=== PATIENT | female | born 1980 | race Hispanic/Latino ===

== ENCOUNTER 2016-10-26 09:09 | Inpatient (IN) | payer OTHER ==
[2016-10-26 09:30] VITALS: BMI 30.5
[2016-10-26] MEDS: Lactated Ringer's 1,000 ML IV SCH ×2 (10:30→11:31)
[2016-10-26] MEDS ORDERED: Oxytocin 30 units/LR 500ML 30 U/500 ML BAG IV SCH ×2 (10:30→10:32)
[2016-10-26] MEDS ORDERED: Fentanyl/Bupivacaine HCl 250 ML EPI ONE (10:40)
[2016-10-26 11:02] VITALS: BP 115/76; PULSE 127; RESP 18; O2SAT 99
[2016-10-26 11:08] LABS: BASO % 0.3 % (0.0-2.0); EOS % 0.5 % (0.0-4.0); HEMOGLOBIN 12.9 g/dL (12.0-16.0); LYMPH # 1.2 K/uL (1.0-4.3); LYMPH % 15.6 % (20.0-40.0); MEAN CELL VOLUME 93.8 fl (81.0-99.0); MEAN CORPUSCULAR HEMOGLOBIN 32.1 pg (27.0-31.0); MEAN CORPUSCULAR HGB CONC 34.2 g/dL (33.0-37.0); MEAN PLATELET VOLUME 8.5 fl (7.2-11.7); MONO # 0.4 K/uL (0.0-0.8); MONO % 4.6 % (0.0-10.0); NEUT # 6.2 K/uL (1.8-7.0); RBC 4.03 Mil/uL (3.80-5.20); RED CELL DISTRIBUTION WIDTH 13.9 % (11.5-14.5); WHITE BLOOD COUNT 7.9 K/uL (4.8-10.8)
--- NOTE | 2016-10-26 11:17 | OBADHP ---
Datetime: 10/26/2016 10:55 Admit Comment, IP Provider: Patient is a a @ 41 wks for late term induction. PRevious x 1 no complications, Patient is Rh negative, received RHogam at 28 wks, had low BRIAN-A and low free B eta - otherwise no antepartum issues. Had history of cardiac ablation many years ago, no current hear t problems, Echo with last was normal, no previous surgery, no medications except vitamins, no allergies VE=50/-3 GPT=806 mod variability, +accels, no decels TOCO=essence q 4 mins A/P 1. Patient admitted for induction for late term at 41 wks. Admit to labor and delivery, IVF, CBC, type and screen 2. WIll start pitocin for augmentation 3. CEFM and TOCO Pelvic Type - PN: Adequate Extremities - PN: Normal Abdomen - PN: Normal Back - PN: Normal Breast - PN: Normal Lungs - PN: Normal Heart - PN: Normal Thyroid - PN: Normal Neurologic - PN: Normal HEENT - PN: Normal General - PN: Normal FHR - Baseline A Provider: 145 Contraction Comments Provider: irregular, q 4 Vital Signs Provider: Reviewed; Within Normal Limits IP Chief Complaint: Uterine contractions NICHD Variability Prov Fetus A: Moderate 6-25bpm NICHD Accel Fetus A IP Provider: [id number] NICHD Decel Fetus A IP Provider: None Dilatation, Provider: 4 Effacement, Provider: 50 Station, Provider: -3 Genitourinary Exam: Normal DTRs - PN: Normal IP Adm Impression: Term, intrauterine IP Admit Plan: Admit to unit; Initiate labor induction protocol
[2016-10-26] MEDS ORDERED: Lactated Ringer's 1,000 ML IV SCH (12:35)
--- NOTE | 2016-10-26 13:54 | OBPN ---
Datetime: 10/26/2016 13:50 IP Progress Impression: Normal progression of labor IP Informed Consent Obtain: Vaginal Delivery IP Procedures: Sterile Vag Exam IP Progress Plan: Continue present management Membranes, Provider: Ruptured Amniotic Fluid Color, Provider: Clear Contraction Comments Provider: q 2-4 FHR - Baseline A Provider: 135 IP Progress Note Comment: Patient feeling some increased pain with contractions, does not want medic ation right now VE=4/50/-2, AROM, clear fluid QOJ=911 mod kerrie, +accels, no decels TOCO=ctxing q 2-4 mins, Pitocin @ 10 mu/min A/P 1. Patient progressing slowly, 4cm, AROM. DOes not want epidural now 2. CEFM and TOCO 3. Re-evaluate as needed Vital Signs Provider: Reviewed; Within Normal Limits NICHD Accel Fetus A IP Provider: [id number] NICHD Variability Prov Fetus A: Moderate 6-25bpm Dilatation, Provider: 4 Effacement, Provider: 50 Station, Provider: -2 NICHD Decel Fetus A IP Provider: None
--- NOTE | 2016-10-26 16:52 | OBPN ---
Datetime: 10/26/2016 16:49 IP Progress Impression: Normal progression of labor IP Informed Consent Obtain: Vaginal Delivery IP Procedures: Sterile Vag Exam IP Progress Plan: Continue present management Contraction Comments Provider: q 2-4 mins FHR - Baseline A Provider: 140 IP Progress Note Comment: Patient comfortable VE=6/100/-1 AAB=908 mod kerrie, +accels, occasional early decels TOCO=ctxning q 2-4 mins A/P 1. Patient progressing, now 6cm. Will continue to augment with pitocin 2. CEFM and TOCO Vital Signs Provider: Reviewed; Within Normal Limits NICHD Accel Fetus A IP Provider: [id number] NICHD Variability Prov Fetus A: Moderate 6-25bpm Dilatation, Provider: 6 Effacement, Provider: 100 Station, Provider: -1 NICHD Decel Fetus A IP Provider: Early
--- NOTE | 2016-10-26 19:13 | OBPN ---
Datetime: 10/26/2016 19:07 IP Progress Impression: Normal progression of labor IP Informed Consent Obtain: Vaginal Delivery IP Procedures: Sterile Vag Exam IP Progress Plan: Continue present management Contraction Comments Provider: q 2 mins FHR - Baseline A Provider: 145 IP Progress Note Comment: Patient feeling increased pain/pressure with contraction VE=10/100/+2 QQS=290 mod kerrie, +accels, no decels TOCO=ctxning q 2 mins A/P 1. Patient in second stage of labor, will start pushing with patient 2. CEFM and TOCO Vital Signs Provider: Reviewed; Within Normal Limits NICHD Accel Fetus A IP Provider: [id number] NICHD Variability Prov Fetus A: Moderate 6-25bpm Dilatation, Provider: 10 Effacement, Provider: 100 Station, Provider: 2
[2016-10-26] MEDS ORDERED: Benzocaine/Menthol SPRAY TOP PRN (19:53)
[2016-10-26] MEDS ORDERED: Oxycodone/Acetaminophen 5/325 mg Tab PO PRN ×2 (19:53)
--- NOTE | 2016-10-26 19:53 | OBDS ---
MATERNAL INFORMATION Provider Comments: of live male over intact perineum, 9lbs 6oz, 9/9 nuchal cord x 1, fol lowed by shoulders and rest of infant, mouth and nose suctioned, cord clamped and cut, handed over to waiting pediatricians, cord blood obtained, placenta delivered spontaneously, first degree la ceration repaired with 3-0 Vicryl rapide, [id number], pt tolerated procedure well LABOR SUMMARY No. Babies in Womb: 1 Attempted: No Labor Anesthesia: Epidural LABOR INFORMATION Reason for Induction: Postterm Onset of Labor: 10/26/2016 14:32 Complete Dilatation: 10/26/2016 19:01 Oxytocin: Induction Group B Beta Strep: Negative Antibiotics # of Doses: n/a Antibiotics Time of Last Dose: n/a Steroids Given: None Reason Steroids Not Administered: Not Applicable MEMBRANES Membranes Rupture Method: Artificial Rupture of Membranes: 10/26/2016 13:45 Amniotic Fluid Color: Bloody Amniotic Fluid Amount: Small Amniotic Fluid Odor: Normal STAGES OF LABOR Stage 1 hrs: 4 Stage 1 min: 29 IDENTIFICATION/MEDS BABY A ID Band Number: [id number]
[2016-10-26 22:36] VITALS: TEMP 98.4
[2016-10-27] MEDS ORDERED: Oxycodone/Acetaminophen 5/325 mg Tab PO PRN ×2 (04:54)
[2016-10-27] MEDS ORDERED: Benzocaine/Menthol SPRAY TOP PRN (04:54)
[2016-10-27 07:12] LABS: HEMOGLOBIN 11.6 g/dL (12.0-16.0); MEAN CELL VOLUME 93.5 fl (81.0-99.0); MEAN CORPUSCULAR HEMOGLOBIN 33.3 pg (27.0-31.0); MEAN CORPUSCULAR HGB CONC 35.6 g/dL (33.0-37.0); RBC 3.48 Mil/uL (3.80-5.20); RED CELL DISTRIBUTION WIDTH 13.7 % (11.5-14.5); WHITE BLOOD COUNT 10.2 K/uL (4.8-10.8)
--- NOTE | 2016-10-27 08:09 | OBPPN ---
Datetime: 10/27/2016 08:06 PP Pain Prov: Within normal limits PP Nausea Prov: Denies PP Flatus Prov: Yes PP Breasts Prov: Normal PP Heart Prov: Normal PP Lungs Prov: Normal PP Abdomen/Uterus Prov: Normal PP Lochia Prov: Normal PP Vulva/Perineum Prov: Normal PP CVA Tenderness Prov: Normal PP Extremities Prov: Normal PP Comments Phys Exam Prov: Fundus firm under umbilicus PP Impression Prov: Normal progression PP Plan Prov: Continue present management PP Progress Note Prov: Patient denies CP, no SOB, no N/V, tolerating PO diet, ambulating/voiding wel l, mild lochia, abdominal pain tolerable with meds A/P PPD #1 1. Reg diet 2. PErcocet/Motrin prn pain 3. Encourage ambulation and IP PP Procedures: None Vital Signs Provider PP: Reviewed; Within Normal Limits
[2016-10-27] MEDS ORDERED: Multivitamin With Minerals Tab PO SCH (09:00)
[2016-10-27] MEDS: Multivitamin With Minerals Tab PO SCH (09:53)
[2016-10-27] MEDS ORDERED: Lansinoh for Breast Feeding Mothers TP ONE (20:13)
[2016-10-28] MEDS: Multivitamin With Minerals Tab PO SCH (10:04)
== END 2016-10-28 12:40 | disposition home or self-care (01) | DRG 775 ==
LOC: H.EROB2 09:09 → H.L&D 09:24 → H.EROB2 10:16 → H.L&D 10:17 → H.OB/GYN 20:15
PROVIDERS: ADMIT Obstetrics & Gynecology; ATTEND Obstetrics & Gynecology
PROC: 10E0XZZ Delivery of Products of Conception, External Approach (ICD-10-PCS; principal; 2016-10-26)
PROC: 0HQ9XZZ Repair Perineum Skin, External Approach (ICD-10-PCS; 2016-10-26)
PROC: 10907ZC Drainage of Amniotic Fluid, Therapeutic from Products of Conception, Via Natural or Artificial Opening (ICD-10-PCS; 2016-10-26)
PROC: 4A1HXCZ Monitoring of Products of Conception, Cardiac Rate, External Approach (ICD-10-PCS; 2016-10-26)
DX: O48.0 Post-term pregnancy (principal); O69.81X0 Labor and delivery complicated by cord around neck, without compression, not applicable or unspecified; O70.0 First degree perineal laceration during delivery; Z37.0 Single live birth; Z3A.41 41 weeks gestation of pregnancy